=== PATIENT | female | born 1985 | race Caucasian/White ===

== ENCOUNTER 2017-05-12 20:10 | Emergency (ER) | payer OTHER ==
[~2017-05-12] VITALS: Ht 157.5 cm; Wt 60.8 kg
[~2017-05-12 20:10] MED LIST: TRAMADOL 50 MG50 MG PO
[2017-05-12 20:46] VITALS: BP 123/80
== END 2017-05-12 20:50 | disposition home or self-care (01) ==
LOC: M.ERS 20:10
DX: Z53.21 Procedure and treatment not carried out due to patient leaving prior to being seen by health care provider (principal)